=== PATIENT | female | born 1985 | race African-American/Black ===

== ENCOUNTER → 2023-09-22 | Emergency (ER) | payer OTHER ==
[~2023-09-22] VITALS: Ht 167.6 cm; Wt 72.0 kg
[2023-09-22] MEDS: KETOROLAC TROMETH 30 MG/ML 1ML VIAL IM ONE (03:49)
[2023-09-22 04:16] VITALS: TEMP 98.2
[2023-09-22 05:00] VITALS: PULSE 86; RESP 16; O2SAT 96
[2023-09-22] MEDS: KETAMINE 50mg/ML 10ml Vial (500mg/10ml) IV ONE (05:09)
[2023-09-22] MEDS: ONDANSETRON HCL 4 MG/2 ML VIAL IV ONE (05:45)
[2023-09-22] MEDS: MORPHINE SULFATE INJ 2 MG/ml SYRG IV ONE (05:45)
[2023-09-22] MEDS: PROPOFOL 10 MG/ML 20 ML IV ONE (06:19)
[2023-09-22 06:30] VITALS: BP 116/68; PULSE 67; RESP 15; O2SAT 100
== END | disposition home or self-care (01) ==
LOC: ER 02:10
DX: S43.025A Posterior dislocation of left humerus, initial encounter (principal); V80.010A Animal-rider injured by fall from or being thrown from horse in noncollision accident, initial encounter; Y93.89 Activity, other specified; Y92.89 Other specified places as the place of occurrence of the external cause; Y99.8 Other external cause status
CPT/HCPCS: 23650; 73030; 96372; 99152; 99285; J1885; J2270; J2405; J2704